=== PATIENT | male | born 1960 | race Caucasian/White ===

== ENCOUNTER → 2017-06-06 | Day surgery (SDC) | payer OTHER ==
[~2017-06-06] VITALS: Ht 177.8 cm; Wt 106.6 kg
[~2017-06-06] MED LIST: MULTI-DAY VITA1 EACH PO; NORCO 5-325 TA1 EACH PO
--- NOTE | ~2017-06-06 | O ---
[facility] [place] [address] OPERATIVE REPORT Name: DORIS STATON Room #: REG [facility].#: [id number] Admission: 06/06/17 Attend Phys: Yomi Alvarez MD Discharge: Date of : 62 Report #: [id number] THIS REPORT FOR: //name// CC: Yomi Capellan MD DATE OF SERVICE: 06/06/2017 PREOPERATIVE DIAGNOSIS: Symptomatic incisional hernia. POSTOPERATIVE DIAGNOSIS: Symptomatic incisional hernia. PROCEDURE PERFORMED: Repair of incisional hernia with medium Ventralex patch. SURGEON: Yomi Alvarez MD ANESTHESIA: General anesthesia. COMPLICATIONS: None. ESTIMATED BLOOD LOSS: 2 mL. PROCEDURE NOTE: With the patient under general anesthesia, IV antibiotic was administered, timeout was performed. Abdomen was prepped and draped in sterile fashion. A 0.25% Marcaine was used to anesthetize the skin and subcutaneous tissue. A curvilinear incision was made. This was made at the old gallbladder site. The incision was about 4 cm after incising through the skin and subcutaneous tissue. Hernia sac was found. The hernia sac was reducible. The hernia sac was free from the overlying skin. Hernia sac was then dissected free. In the subcutaneous tissue, there was more scar fibrosis on the left side inferiorly. The hernia sac was free from the fascia. The hernia sac was then reduced. Properitoneal dissection was then performed. The properitoneal space was opened up with cautery and blunt dissection. The space was felt to have opened up well. The space was irrigated. Irrigation was suctioned out. Medium sized Ventralex patch was placed. For some reason, the patch was folded on the left side. After trying to manipulate, get it opened up properly and even opened the space up more, the mesh material still opened properly. A second piece of medium size Ventralex patch was then placed . The mesh seated well. The fascia defect was closed with horizontal mattress fashion of 0 Prolene. Two separate stitches were used. This incorporated the strap. The suture was tied down. The strap was then trimmed off at the fascia level. The skin of the umbilicus was then sewn down to the fascia. The subcutaneous tissue was also closed with 4-0 PDS. Skin was closed with 5-0 PDS running subcuticular fashion. Steri-Strip was applied, 4 x 4 was placed in the umbilicus in a [facility] [address] [place] [address] OPERATIVE REPORT Name: DORIS STATON Room #: REG [facility].#: [id number] Admission: 06/06/17 Attend Phys: Yomi Alvarez MD Discharge: Date of : 62 Report #: [id number] compression type dressing. OpSite was used for dressing. The patient tolerated procedure well. By: [id number] Yomi Alvarez MD /lynda
--- NOTE | ~2017-06-06 | H ---
[facility] [place] [address] HISTORY AND PHYSICAL Name: DORIS STATON Room #: REG [facility].#: [id number] Admission: 06/06/17 Attend Phys: Yomi Alvarez MD Discharge: Date of : 62 Report #: [id number] THIS REPORT FOR: //name// CC: Yomi Capellan DATE OF SERVICE: 06/06/2017 PREOPERATIVE DIAGNOSIS: Symptomatic incisional hernia at the umbilicus from prior gallbladder surgery. HISTORY OF PRESENT ILLNESS: The patient is a 56-year-old who has been having quite a bit of pain in the area of the umbilicus. The patient did have an acute cholecystitis in 2013 that required laparoscopic cholecystectomy. The patient also had a common bile duct stone that needed to be removed with ERCP. The patient's abdominal wall was opened to get the inflamed gallbladder out, was partially opened at the trocar site. For the last year, the patient has noticed pain in the umbilicus, especially with lifting. About a year ago, he had to perform heavy job function and he was doing this job very repetitively for about a week and then he noticed soreness in the abdomen, thought that he pulled a muscle. Recently, he has noticed an increased bulge in the umbilicus. Even walking bothers it at the end of the day. He feels like he is drained at the end of the week. No nausea or vomiting. He is able to push the bulge back down mostly. No redness. The patient does complain of some intermittent cramp and diarrhea related to gallbladder surgery. He is here for repair of this quite symptomatic hernia. PAST MEDICAL HISTORY: No heart disease, no diabetes, no high blood pressure. No lung disease, no liver disease, no kidney disease, no bleeding disorder, no history of blood clot. ALLERGIES: He is not allergic to anything. PAST SURGICAL HISTORY: The patient had shoulder surgery in both sides in 1997 and year 1999. In 2013, the patient had a gallbladder surgery and ERCP. MEDICATIONS: He is not on any medication. ALLERGIES: He does not have any allergies. FAMILY HISTORY: Mother with heart disease. Siblings with history of cancer. SOCIAL HISTORY: The patient works in paint production. Does not smoke, does not drink. [facility] [address] [place] [address] HISTORY AND PHYSICAL Name: DORIS STATON Room #: REG [facility].#: [id number] Admission: 06/06/17 Attend Phys: Yomi Alvarez MD Discharge: Date of : 62 Report #: [id number] REVIEW OF SYSTEMS: No headache, chest pain or palpitation. No back pain, no extremity pain or weakness. PHYSICAL EXAMINATION: GENERAL: The patient is a well-nourished male, in no acute distress. HEENT: Pupils react to light. Extraocular muscles are intact. NECK: Soft and supple, no masses. LUNGS: Clear to auscultation. HEART: Regular rate and rhythm. No murmur or gallop. ABDOMEN: Moderately obese. The patient does have a diastasis. There is no ascites or guarding. He does have a fairly large umbilical site hernia from his trocar defect. It is partially reducible. It is moderately tender to palpation. No redness. EXTREMITIES: No cyanosis, clubbing, edema. IMPRESSION: The patient with a symptomatic incisional hernia of the umbilicus from his laparoscopic trocar site. The patient did have a bad gallbladder and the abdominal wall trocar did have to be enlarged to get the gallbladder out. About a year ago, he did quite a bit of work activity and developed pain in this area. Subsequently, he has noted a bulge. The patient is having difficulty with pain in this area at the end of the day and also at the end of the work week. The patient is recommended to have the hernia repair and the hernia repair was discussed. The patient wishes to proceed and use of a mesh was discussed. Risk of bleeding, infection, mesh infection was discussed. By: [id number] Yomi Alvarez MD /nt
[2017-06-06 14:49] VITALS: BP 134/86
[2017-06-06 16:49] VITALS: BP 134/86
== END | disposition home or self-care (01) ==
LOC: OR 13:42 → GI 13:42
DX: K43.2 Incisional hernia without obstruction or gangrene (principal); Z98.890 Other specified postprocedural states; Z79.891 Long term (current) use of opiate analgesic
CPT/HCPCS: 50010; 50101; 50130; 50386; 50403; 56524; 56525; 62110; 62900; 70005